=== PATIENT | female | born 1955 | race Two or more races ===

== ENCOUNTER → 2019-10-12 | Outpatient (CLI) | payer BC ==
[~2019-10-12] MED LIST: AMLO5TAB10 PO; ASPI-612 PO; ATOR10TA PO; ATOR20TA58 PO; CITA20TA9 PO; HYDR12.575 PO; LEVO25TA55 PO; LORA0.5T96 PO; METF500T16 PO; OLME1TAB23 PO
== END | disposition home or self-care (01) ==
LOC: MERGE 11:42 → LAB 11:42
PROVIDERS: ATTEND Internal Medicine Cardiovascular Disease
DX: R07.9 Chest pain, unspecified (principal); Z20.828 Contact with and (suspected) exposure to other viral communicable diseases
CPT/HCPCS: 36415; 87635

== ENCOUNTER 2019-10-15 09:59 | Outpatient (CLI) | payer BC ==
--- NOTE | 2019-10-13 10:59 | NUR ---
IP: Pt is COVID negative.
[~2019-10-15] VITALS: Ht 154.9 cm; Wt 77.1 kg
[2019-10-15] VITALS (10 sets, daily range): BP systolic 119–202; BP diastolic 52–86
[~2019-10-15 09:59] MED LIST changes: -AMLO5TAB10 PO; -ATOR20TA58 PO; -CITA20TA9 PO; -HYDR12.575 PO; -LORA0.5T96 PO; -METF500T16 PO
[2019-10-15 10:32] LABS: CALCIUM 8.9 mg/dL (8.5-10.1); CREATININE 0.7 mg/dL (0.6-1.0); GFR 83.7; POTASSIUM 3.3 mmol/L (3.5-5.1)
[2019-10-15 10:34] LABS: HEMATOCRIT 40.4 % (36.0-47.0); HEMOGLOBIN 13.5 g/dL (12.0-15.5); RED BLOOD COUNT 4.34 x10^6/uL (3.50-5.40); RED CELL DISTRIBUTION WIDTH 13.5 % (11.5-14.5); WHITE BLOOD COUNT 10.6 x10^3/uL (4.0-11.0)
[2019-10-15 10:58] LABS: PROTHROMBIN TIME PATIENT 11.9 SEC (11.7-14.0)
[2019-10-15] MEDS ORDERED: CITA20TA9 PO (11:07)
[2019-10-15] MEDS ORDERED: HYDR12.575 PO (11:07)
[2019-10-15] MEDS ORDERED: METF500T16 PO (11:07)
[2019-10-15] MEDS ORDERED: ATOR20TA58 PO (11:07)
[2019-10-15] MEDS ORDERED: LORA0.5T96 PO (11:07)
[2019-10-15] MEDS ORDERED: AMLO5TAB10 PO (11:07)
[2019-10-15] MEDS ORDERED: LIDOCAINE 1% Multi-Dose 20 ML VIAL. ONE (11:41)
[2019-10-15] MEDS ORDERED: IOHEXOL 300 MG/ML 100ML VIAL. ONE (11:41)
[2019-10-15] MEDS ORDERED: MIDAZOLAM HCL/PF 2 MG/2 ML VIAL. ONE (11:51)
[2019-10-15] MEDS ORDERED: fentaNYL PF VIAL 100 MCG/2 ML VIAL ONE (11:51)
[2019-10-15] MEDS ORDERED: MIDAZOLAM HCL/PF 2 MG/2 ML VIAL. IV ONE (12:30)
[2019-10-15] MEDS ORDERED: fentaNYL PF VIAL 100 MCG/2 ML VIAL IV ONE (12:30)
[2019-10-15] MEDS ORDERED: LIDOCAINE 1% Multi-Dose 20 ML VIAL. INJ ONE (12:30)
[2019-10-15] MEDS ORDERED: IOHEXOL 300 MG/ML 100ML VIAL. IART ONE (12:30)
--- NOTE | 2019-10-15 13:11 | CARD ---
MR#: [id number] Date of Study: 10/15/2019 Ordering Physician: HILDA CLEMENS, Referring Physician: HILDA CLEMENS Tech: RT Gaston (R) APPROVED REPORT Technologist: RT Gaston (R) Nurse: Ritu Cartagena R.N. Procedure(s) performed: Right and left heart catheterization, selective coronary angiography and left ventriculography Sedation Time: 57 Minutes Dose: 80.66 Gycm2 Fluoro Time: 5.3minutes Contrast: 147mL Omnipaque 300 INDICATION The indication(s) include : Unstable angina and refractory dyspnea on exertion. [facility] Clinical Frailty Scale [facility] Clinical Frailty Scale: Mildly Frail Heart Failure Heart Failure: No PROCEDURE NARRATIVE After explaining the risks, benefits and alternative options, informed consent was obtained for patie nt. Patient was brought to the cardiac Energy Technician and her right groin was prepped and draped in the us ual fashion. 20 cc of 2% lidocaine was infiltrated into the skin and subcutaneous tissues for local anesthesia. Arterial and venous accesses were obtained in the right common femoral artery and vein a nd 6 and 8 [place] Citizen sheaths were inserted respectively. A 7.5 [place]-Tadeo catheter was then used to obtain intracardiac pressures, oxygen saturations and cardiac output by thermodilution method. Jorge bsequently, 6 [place] Citizen JL4 and 6 [place] Citizen JR4 catheters were used to perform selective angiography of the left and right coronary arteries. 6 [place] Citizen pigtail catheter was used to perform left ventriculograp hy. Patient tolerated the procedure well. Hemostasis was achieved using manual compression. There were no immediate complications. FINDINGS A. RIGHT HEART CATHETERIZATION 1. Intracardiac pressures: Mean right atrial pressure 8 mmHg, right ventricular pressure 35/7 mmHg, pulmonary artery pressure 27/9 mmHg with mean PA pressure 16 mmHg and mean pulmonary capillary wedge pressure 13 mmHg. No pulmonary hypertension. 2. Oxygen saturations: Right atrium 72.8%, pulmonary artery 73.7% and femoral arterial sheath 97.9%. No evidence of intracardiac shunt. 3. Cardiac output by thermodilution method 4.1 L/min. B. LEFT HEART CATHETERIZATION 1. Hemodynamics: Elevated left ventricular end-diastolic pressure of 35 mmHg consistent with acute o n chronic diastolic heart failure. No pullback gradient across the aortic valve. 2. Left ventriculography: Normal left ventricular systolic function with ejection fraction estimated at 65%. No significant mitral regurgitation seen. 3. Coronary angiography: a. The left main coronary artery arose from the left sinus of Valsalva, was short, gave rise to the left anterior descending and left circumflex arteries and did not show any significant stenosis. b. The left anterior descending artery did not show any significant stenosis. c. The left circumflex artery did not show any significant stenosis. d. The right coronary artery was a dominant vessel arising from the right sinus of Valsalva that lilia wed patent previously placed stent in the proximal segment of the posterior descending branch. Conclusion 1. Patent previously placed stent in posterior descending branch of RCA. No significant coronary ar susan stenosis was noted. 2. Normal left ventricular systolic function with ejection fraction estimated at 65%. 3. Acute on chronic diastolic heart failure as evidenced by elevated LVEDP. 4. No pulmonary hypertension. 5. No evidence of intracardiac shunt. Recommendations Optimization of medical therapy, cardiovascular risk factor modification and a graded exercise regime n. Signed by : Hilda Clemens, Electronically Approved : 10/15/2019 13:11:00
--- NOTE | 2019-10-15 16:23 | NUR ---
Discharge Note: TRAVIS FLOWERS Discharge instructions and discharge home medications reviewed with Patient and a copy given. All questions have been answered and understanding verbalized. Dressing site to R groin remains clean and dry, no swelling noted The following instructions and handouts were given: groin site care, sedation Discontinued lines and drains: Peripheral IV intact. Patient discharged to Home or Self Care with Family Member via Wheelchair GERARDO RN Addendum: 10/15/19 at 1625 by FRANKY TLILEY RN Amended: Links added.
== END 2019-10-15 16:20 | disposition home or self-care (01) ==
LOC: CCL 09:59
PROVIDERS: ATTEND Internal Medicine Cardiovascular Disease
DX: I20.0 Unstable angina (principal); I50.33 Acute on chronic diastolic (congestive) heart failure
CPT/HCPCS: 36415; 80048; 85027; 85610; 93460; 99152; 99153; C1769; C1773; C1892; J1644; J2250; J3010; J3490; Q9967

== ENCOUNTER → 2021-04-12 | Outpatient (CLI) | payer BC ==
[2019-10-15 16:00] VITALS: BP 155/64
[~2021-04-12] MED LIST changes: +AMLO-186 PO; -ASPI-612 PO; +ASPI-886 PO; +ATOR20TA58 PO; +CITA20TA9 PO; +HYDR12.575 PO; +LORA0.5T96 PO; +METF500T16 PO; +REGADENOSON 0.4 MG/5 ML DISP.SYRIN. IV ONE
--- NOTE | 2021-04-12 14:43 | RAD ---
MR#: [id number] Date of Study: 04/12/2021 Ordering Physician: HILDA HOFFMAN Referring Physician: GABBY CLIFTON Tech: RT Paula Harden) (N) APPROVED REPORT Test Type: Pharmacological Stress Nurse/Tech: Ammon Marsh RN Test Indications: CAD Cardiac History: CAD, HTN Medications: See Electronic Medical Record Medical History: See Electronic Medical Record Resting ECG: SR Resting Heart Rate: 52 bpm Resting Blood Pressure: 173/57mmHg Pretest Chest Pain: None Nurse/Tech Notes Lungs CTA, S1S2 Consent: The procedure was explained to the patient in lay terms. Informed consent was witnessed. Romero eout was entered into [employer]. History and Stress Test performed by RT Dereck (Shanita) (N) Pharm. Details Pharmacologic stress testing was performed using 0.4mg per 5ml of regadenoson given intravenously ove r 7-10 seconds. Stress Symptoms No chest pain or symptoms. POST EXERCISE Reason for Termination: Infusion complete Max HR: 99 bpm Max Blood Pressure: 181/72mmHg Blood Pressure response to exercise: Normal blood pressure response during stress. Heart Rate response to exercise: normal response Chest Pain: No. Arrhythmia: No. ST Change: No. INTERPRETATION Stress EKG Conclusion: The resting EKG shows a sinus bradycardia with mild nonspecific ST segment harry nges. The stress EKG shows no significant changes from baseline. No EKG evidence of stress-induced ischemia. Imaging Protocol IMAGE PROTOCOL: Rest Tc-99m/stress Tc-99m 1 day Rest: Stress: Viability: Radiopharm.Tc99m UjbckjwncJd19g Sestamibi Oqfc16jQs 32mCi Duration 15min. 15min. Img Date 04/12/2021 04/12/2021 Inj-Img Kymr36jbu. 60min. Rest Admin Site:IV - Right WristAdministrator:RT Dereck (Shanita)(N) Stress Admin Site: IV - Right WristAdministrator: RT Dereck (R)(N) STRESS DATA End Diast. Vol.54.0mlLVEDV index BSA32.0ml End Syst. Vol.8.0mlLVESV index BSA5.0ml Myocardial Mass90.0gEject. Lusvppic48.0% Stress Scores Regional WT0.00Summed WT0.00 Regional WM0.00Summed WM0.00 LV Perfusion The stress scans showed no significant defects. The rest scans showed no significant defects. Nuclear imaging shows no reversible ischemia or infarct. Wall Motion Left ventricular systolic function is normal with an ejection fraction of greater than 70%. LV Perf. Quant 17 Seg. SSS0.00 17 Seg. SRS0.00 17 Seg. SDS0.00 Stress Defect Extent (% LAD)0.00Rest Defect Extent (% LAD)0.00Rev. Defect Extent (% LAD)0.00 Stress Defect Extent (% LCX) 7.50Rest Defect Extent (% LCX)0.00Rev. Defect Extent (% LCX)6.30 Stress Defect Extent (% RCA)0.00Rest Defect Extent (% RCA)0.00Rev. Defect Extent (% RCA)0.00 Stress Defect Extent (% ARNOLDO)1.30Rest Defect Extent (% ARNOLDO)0.00Rev. Defect Extent (% ARNOLDO)1.10 Conclusion 1. Abnormal baseline EKG but no EKG evidence of stress-induced ischemia. 2. Nuclear imaging shows no reversible ischemia or infarct. 3. Intact LV systolic function with an ejection fraction of greater than 70%. 4. Low risk Lexiscan nuclear stress test. Signed by : Ishaan Mcdonnell MD Electronically Approved : 04/12/2021 14:43:36
--- NOTE | 2021-04-13 12:22 | CARD ---
MR#: [id number] Date of Study: 04/12/2021 Ordering Physician: HILDA HOFFMAN, Referring Physician: HILDA HOFFMAN Tech: Christina Guerra [facility] APPROVED REPORT EXAM: Two-dimensional and M-mode echocardiogram with Doppler and color Doppler. Other Information Quality : ExcellentTechnically LimitedLimitedHR: 58bpm Rhythm : NSR INDICATION Cardiac Disease: CAD RISK FACTORS Hypertension Obesity Hyperlipidemia 2D DIMENSIONS RVDd3.1 (2.9-3.5cm)Left Atrium(2D)3.1 (1.6-4.0cm) IVSd1.1 (0.7-1.1cm)Aortic Root(2D)2.8 (2.0-3.7cm) LVDd4.6 (3.9-5.9cm)LVOT Diameter2.0 (1.8-2.4cm) PWd1.1 (0.7-1.1cm)LVDs2.5 (2.5-4.0cm) FS (%) 45.5 %SV74.1 ml Aortic Valve AoV Peak Sajan.183.8cm/sAoV VTI43.3cm AO Peak GR.13.5mmHgLVOT Peak Sajan.105.0cm/s AO Mean GR.7mmHgAVA (VMAX)1.73cm2 Mitral Valve MV E Qsmbdunq01.9cm/sMV DECEL LXOP587qy MV A Gbrtyzyw414.4cm/sE/A Ratio0.7 Pulmonary Valve PV Peak Twznbxzy230.4cm/s Tricuspid Valve TR P. Jdzganos205tn/sTR Peak Gr.20mmHg LEFT VENTRICLE The left ventricle is normal size. There is mild concentric left ventricular hypertrophy. The left ve ntricular systolic function is normal and the ejection fraction is within normal range. LV ejection fraction of 55 to 60%. There is normal LV segmental wall motion. Transmitral Doppler flow pattern is Grade I-abnormal relaxation pattern. RIGHT VENTRICLE The right ventricle is normal size. The right ventricle is mildly hypertrophied. The right ventricula r systolic function is normal. ATRIA The left atrium size is normal. The right atrium size is normal. The interatrial septum is intact wit h no evidence for an atrial septal defect or patent foramen ovale as noted on 2-D or Doppler imaging. AORTIC VALVE The aortic valve is normal in structure and function. Doppler and Color Flow revealed no significant aortic regurgitation. There is no significant aortic valvular stenosis. MITRAL VALVE The mitral valve is normal in structure and function. There is no evidence of mitral valve prolapse. There is no mitral valve stenosis. Doppler and Color-flow revealed trace mitral regurgitation. TRICUSPID VALVE The tricuspid valve is normal in structure and function. Doppler and Color Flow revealed trace tricus pid regurgitation. Estimated PAP 24 mmHg. There is no tricuspid valve stenosis. PULMONIC VALVE The pulmonary valve is normal in structure and function. Doppler and Color Flow revealed mild pulmoni c valvular regurgitation. GREAT VESSELS The aortic root is normal in size. The ascending aorta is normal in size. The IVC is normal in size a nd collapses >50% with inspiration. PERICARDIAL EFFUSION There is no evidence of significant pericardial effusion. Critical Notification Critical Value: No <Conclusion> The left ventricle is normal size. The left ventricular systolic function is normal and the ejection fraction is within normal range. LV ejection fraction of 55 to 60%. There is normal LV segmental wall motion. There is mild concentric left ventricular hypertrophy. Doppler and Color Flow revealed no significant aortic regurgitation. There is no significant aortic valvular stenosis. Doppler and Color-flow revealed trace mitral regurgitation. Doppler and Color Flow revealed trace tricuspid regurgitation. Estimated PAP 24 mmHg. Signed by : Ishaan Mcdonnell MD Electronically Approved : 04/13/2021 12:21:36
== END ==
LOC: MERGE 09:30 → NM 09:36
PROVIDERS: ATTEND Internal Medicine Cardiovascular Disease
DX: I37.1 Nonrheumatic pulmonary valve insufficiency (principal); R94.31 Abnormal electrocardiogram [ECG] [EKG]; I25.10 Atherosclerotic heart disease of native coronary artery without angina pectoris; I10 Essential (primary) hypertension; E78.5 Hyperlipidemia, unspecified; E66.9 Obesity, unspecified
CPT/HCPCS: 78452; 93017; 93306; A9500; J2785

== ENCOUNTER 2021-06-19 07:26 | Outpatient (CLI) | payer BC, MEDICARE ==
[~2021-06-19] VITALS: Ht 152.4 cm; Wt 73.0 kg
[2021-06-19] VITALS (16 sets, daily range): BP systolic 114–198; BP diastolic 49–94
[~2021-06-19 07:26] MED LIST changes: -REGADENOSON 0.4 MG/5 ML DISP.SYRIN. IV ONE
[2021-06-19] MEDS ORDERED: LIDOCAINE 1% Multi-Dose 20 ML VIAL. ONE (07:58)
[2021-06-19] MEDS ORDERED: IODIXANOL 320 MG/ML 100 ML VIAL. ONE (07:58)
[2021-06-19 08:10] LABS: HEMATOCRIT 38.9 % (36.0-47.0); RED BLOOD COUNT 4.15 x10^6/uL (3.50-5.40); RED CELL DISTRIBUTION WIDTH 13.6 % (11.5-14.5); WHITE BLOOD COUNT 5.9 x10^3/uL (4.0-11.0)
[2021-06-19 08:17] LABS: CALCIUM 8.4 mg/dL (8.5-10.1); CREATININE 0.6 mg/dL (0.6-1.0); GFR 99.7; POTASSIUM 3.9 mmol/L (3.5-5.1)
[2021-06-19 08:34] LABS: PROTHROMBIN TIME PATIENT 12.1 SEC (11.7-14.0)
[2021-06-19] MEDS ORDERED: LEVO25TA4 PO (08:39)
[2021-06-19] MEDS ORDERED: LOSA50TA15 PO (08:39)
[2021-06-19] MEDS ORDERED: MELO15TA23 PO (08:39)
[2021-06-19] MEDS ORDERED: fentaNYL PF VIAL 100 MCG/2 ML VIAL ONE (08:43)
[2021-06-19] MEDS ORDERED: MIDAZOLAM HCL/PF 2 MG/2 ML VIAL. ONE (08:43)
[2021-06-19] MEDS ORDERED: LIDOCAINE 1% Multi-Dose 20 ML VIAL. INJ ONE (09:15)
[2021-06-19] MEDS ORDERED: MIDAZOLAM HCL/PF 2 MG/2 ML VIAL. IV ONE (09:15)
[2021-06-19] MEDS ORDERED: fentaNYL PF VIAL 100 MCG/2 ML VIAL IV ONE (09:15)
[2021-06-19] MEDS ORDERED: IODIXANOL 320 MG/ML 100 ML VIAL. IART ONE (09:15)
--- NOTE | 2021-06-19 09:28 | PDOC ---
MODERATE SEDATION ASSESSMENT RISKS/ALTERNATIVES Risks/Alternatives Risks and alternatives of this type of sedation and procedure discussed with: RISK/ALTERNATIVES: Patient H & P ON CHART H & P H & P on chart and reviewed for co-morbid conditions and appropriate labs. H&P ON CHART: Yes STATUS PREG STATUS ASSESSED: N/A MEDS/ALLERGIES REVIEWED Meds/Allergies Reviewed Medications and Allergies including time and route of recently administered narcotics and sedatives. MEDS/ALLERGIES REVIEWED: Yes ASA RATING ASA RATING: II AIRWAY ASSESSMENT Airway Assessment Airway patency, oral function limitations, presence of caps, crowns, dentures, partials, and ability to extend neck assessed. AIRWAY ASSESSMENT: Yes MALLAMPATI SCORE MALLAMPATI SCORE: II PRE-SEDATION ASSESSMENT PRE-SEDATION ASSESSMENT: Yes HILDA HOFFMAN MD Jun 19, 2021 09:28
[2021-06-19] MEDS ORDERED: IV 1/2 NORMAL SALINE 1,000 ML IV SCH (09:30)
--- NOTE | 2021-06-19 09:50 | CARD ---
MR#: [id number] Date of Study: 06/19/2021 Ordering Physician: HILDA CLEMENS, Referring Physician: HILDA CLEMENS, Tech: RT Roni(R) APPROVED REPORT Technologist: RT Roni(R) Nurse: Ritu Cartagena RN Procedure(s) performed: Right and left heart catheterization, selective coronary angiography and left ventriculography FL TIME: 3.4 MIN DOSE: 48 GYCM2 CONTRAST: 119 ML MODERATE SEDATION: 34 MINS INDICATION The indication(s) include : Chest pain and refractory dyspnea on exertion concerning for unstable ang karin. [facility] Clinical Frailty Scale [facility] Clinical Frailty Scale: Mildly Frail Heart Failure Heart Failure: No CASE TECHNIQUE IV conscious sedation was used throughout procedure with appropriate monitoring and was performed in the presence of a registered nurse who was an independent trained observer other than the physician p erforming the procedure. During this case, Fluoroscopy and low osmolar contrast were used for imaging . Specimen(s) Removed: No Estimated Blood loss: 15 cc's. PROCEDURE NARRATIVE After explaining the risk, benefits and alternative options, informed consent was obtained from patie nt. Patient was brought to the cardiac Yeast Cake Cutter and her right groin groin was prepped and draped in the usual fashion. 20 cc of 2% lidocaine was infiltrated into the skin and subcutaneous tissues for local anesthesia. Arterial and venous accesses were obtained in the right common femoral artery and vein respectively and 6 and 8 [place] sheaths inserted. A 7.5 [place]-Tadeo catheter was then adva nced under fluoroscopic guidance and intracardiac pressures, oxygen saturations and cardiac output by Gabi method measured. Subsequently, 6 [place] JL 4 and 6 [place] JR4 catheters were used to perform s elective angiography of the left and right coronary arteries. 6 [place] pigtail catheter was used to perform left ventriculography. Patient tolerated the procedure well. Hemostasis was achieved using Angio-Seal. There were no immediate complications. FINDINGS A. RIGHT HEART CATHETERIZATION 1. Intracardiac pressures: Mean right atrial pressure 11 mmHg, right ventricular pressure 34/4 mmHg, pulmonary artery pressure 33/15 mmHg with mean PA pressure 23 mmHg and mean pulmonary capillary wedg e pressure 14 mmHg. No significant pulmonary hypertension noted. 2. Oxygen saturations: Right atrium 75.6%, pulmonary artery 76.5%, femoral arterial sheath 97.8%. N o evidence of intracardiac shunt. 3. Cardiac output by Gabi method 4.1 L/min B. LEFT HEART CATHETERIZATION 1. Hemodynamics: Left ventricular end-diastolic pressure 27 mmHg. No pullback gradient across the a ortic valve. 2. Left ventriculography: Normal left ventricular systolic function with ejection fraction estimated at 65%. No significant mitral regurgitation seen. 3. Coronary angiography: a. The left main coronary artery arose from the left sinus of Valsalva, was short, gave rise to the left anterior descending and left circumflex arteries and did not show any significant stenosis. b. The left anterior descending artery did not show any significant stenosis c. The left circumflex artery did not show any significant stenosis. d. The right coronary artery was a dominant vessel arising from the right sinus of Valsalva that lilia wed a patent previously placed stent in the proximal segment of the posterior descending branch. Conclusion 1. Patent previously placed stent in the posterior descending branch of right coronary artery. No l esions needing intervention were noted. 2. Normal left ventricular systolic function with ejection fraction estimated at 65%. 3. No significant pulmonary hypertension. 4. No evidence of intracardiac shunt. Recommendations Medical Therapy Signed by : Hilda Clemens, Electronically Approved : 06/19/2021 09:50:04
--- NOTE | 2021-06-19 12:57 | NUR ---
Patient became dizzy and lightheaded when she went to get up to the wheelchair in order to be discharged. Patient placed back in bed and blood pressure checked, 114/49. Patient groin site rechecked and dressing=clean,dry,intact/soft with no bleeding. After resting for 10 minutes in bed patient's blood pressure evcnxdvaa=496/66. Addendum: 06/19/21 at 1333 by LUIS HATFIELD RN Patient stated that sedation makes her dizzy/lightheaded and it goes away with time.
--- NOTE | 2021-06-19 13:16 | NUR ---
Discharge Note: RAYSHAWN FLOWERS Discharge instructions and discharge home medications reviewed with Patient and a copy given. All questions have been answered and understanding verbalized. The following instructions and handouts were given: groin site care and adult moderate sedation Discontinued lines and drains: Peripheral IV intact. Patient discharged to Home or Self Care withFamily Membervia Wheelchair. 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
== END 2021-06-19 13:15 | disposition home or self-care (01) ==
LOC: CCL 07:26
PROVIDERS: ATTEND Internal Medicine Cardiovascular Disease
DX: I25.110 Atherosclerotic heart disease of native coronary artery with unstable angina pectoris (principal); R06.09 Other forms of dyspnea; R07.9 Chest pain, unspecified; I10 Essential (primary) hypertension; E78.00 Pure hypercholesterolemia, unspecified; E66.9 Obesity, unspecified; K21.9 Gastro-esophageal reflux disease without esophagitis; E11.9 Type 2 diabetes mellitus without complications; M19.90 Unspecified osteoarthritis, unspecified site; F41.9 Anxiety disorder, unspecified; J45.909 Unspecified asthma, uncomplicated; Z86.73 Personal history of transient ischemic attack (TIA), and cerebral infarction without residual deficits; Z79.899 Other long term (current) drug therapy; Z98.890 Other specified postprocedural states; Z88.5 Allergy status to narcotic agent; Z79.82 Long term (current) use of aspirin; Z79.84 Long term (current) use of oral hypoglycemic drugs; Z90.49 Acquired absence of other specified parts of digestive tract; Z90.710 Acquired absence of both cervix and uterus
CPT/HCPCS: 36415; 80048; 85027; 85610; 93460; 99152; 99153; C1760; C1769; C1773; C1894; J1644; J2250; J3010; J3490; Q9967; G0269